=== PATIENT | female | born 1940 | race Caucasian/White ===

== ENCOUNTER → 2016-09-21 | Outpatient (CLI) | payer MEDICARE ==
[~2016-09-21] MED LIST: ASPIRIN ADULT L81 M2 PO; B-COMPLEX1 CAP PO; BACTRIM DS 8001 TA1 PO; CELEXA20 MG PO; CIMETIDINE400 M1 PO; CLONAZEPAM1 M1 PO; CLONAZEPAM1 MG PO; COREG12.5 M1 PO; COREG3.125 MG PO; ECOTRIN325 MG PO; FISH OIL1000 MG PO; FLAGYL500 MG PO; FLUTICAS P0.05 MG/AC NAS; FLUTICASON0.05 MG/AC NAS; HYDROCODONE BIT1 T11 PO; HYZAAR 12.5 MG-1 TAB PO; HYZAAR 25 MG-101 TA1; KLONOPIN1 MG PO; NIACIN FLUSH-F400 MG PO; NITROGLYCERIN0.4 MG SL; NITROQUICK0.4 MG SL; NON-DROWSY ALLE10 MG PO; NONI PO; OMEGA 31000 MG PO; OMEGA-3 FISH1000 MG PO; OSTEO-BI-FLEX 21 TAB PO; PAPAYA ENZYME PO; PLAVIX75 M1 PO; PLAVIX75 MG PO; PRESERVISION L1 EACH PO; PREVACID30 M1 PO; PRILOSEC; PRINIVIL20 MG PO; PROAIR HFA8.5 GM INH; PROTONIX TR40 MG PO; PROTONIX40 MG PO; RED YEAST RICE600 MG PO; SINGULAIR10 M1 PO; SINGULAIR10 MG PO; SUPER B-50 COM1 EAC1 PO; SYNTHROID,LEV100 MCG PO; SYNTHROID,LEVO88 MCG PO; Synthroid,Lev100 MCG PO; VITAMIN B COMPL1 CAP PO; VITAMIN B121000 MCG PO; VITAMIN C500 M4 PO; VITAMIN D1000 IU PO; VITAMIN D2000 IU PO; VITAMIN D3400 IU PO; VITAMIN E500 IU PO; ZANTAC 300300 MG PO; ZESTRIL10 MG PO; ZOFRAN4 MG PO
--- NOTE | ~2016-09-21 | ST ---
[place], [place] EXERCISE STRESS TEST REPORT NAME: RALPH RUBIN UNIT #: [id number] ROOM: DOCTOR: NANCY GONZALEZ [facility],[place] BIRTHDATE: [birth year] DOS: LEXISCAN WITH CARDIOLITE The patient received Lexiscan 0.4 mg over 10 seconds. Heart rate is 91. No ischemic changes on EKG. No complications noted. Isotope was injected and the patient was hemodynamically stable. No electrocardiographic changes for myocardial ischemia noted. Myocardial perfusion scan to follow. KARSON CRUZ MD CM:STRESS:EXERCISE STRESS TEST REPORT [id number] DESHAUN CRUZ MD [facility]
== END | disposition home or self-care (01) ==
LOC: CARD 01:13
DX: Z01.810 Encounter for preprocedural cardiovascular examination (principal); I25.118 Atherosclerotic heart disease of native coronary artery with other forms of angina pectoris; R06.02 Shortness of breath

== ENCOUNTER 2017-11-05 14:58 | Inpatient (IN) | payer MEDICARE, OTHER ==
[~2017-11-05] VITALS: Ht 165.1 cm; Wt 68.0 kg
--- NOTE | ~2017-11-05 | CON ---
[place], [place] REPORT OF CONSULTATION NAME: RALPH RUBIN UNIT #: [id number] ROOM: 411 DO[facility] [birth year] DOS: 11/06/2017 CARDIOLOGY CONSULTATION HISTORY OF PRESENT ILLNESS: The patient is a 76-year-old female came in with precordial chest discomfort. After the nitro paste, it has subsided, doing quite well. This morning, no further chest discomfort, no dyspnea, no syncope or presyncope, and the patient had a knee surgery done in July. Prior to that, in either May or June, she had a stress test with myocardial perfusion scan done as an outpatient, not in this institution, outside of this institution. We will obtain the results and I will review it. If there is any concern, we may do the coronary artery possible revascularization. If there is no further concern, if the left ventricle systolic function is good, no significant ischemia, we will manage conservatively as an outpatient with the medical therapy. The patient's knee surgery was right knee replacement, Dr. Machado has done that. The patient already on baby aspirin, used to be on ____ change it to baby aspirin, also on beta lorrie agents and VIDA inhibitor and now we want to put on nitrates, long acting, such as Imdur, that is isosorbide mononitrate. Chest x-ray done on admission was unremarkable. The patient has a history of coronary artery disease, chronic kidney disease, anxiety, history of diverticulitis, gastroesophageal reflux disease, dyslipidemia, hypothyroidism, hypertension, history of TIA in the past. No syncope or presyncope at this time. Lupus. The patient is prediabetic. PAST SURGICAL HISTORY: Cardiac catheterization, repair of the hiatal hernia, right total knee replacement recently, coronary stent and a tubal ligation. SOCIAL HISTORY: No history of smoking, alcohol, drug or tobacco use. The patient cannot take pravastatin. PHYSICAL EXAMINATION: VITAL SIGNS: Stable. Blood pressure is 134/84 and afebrile and heart rate is 70. GENERAL: Alert. NECK: Supple. LUNGS: No rales heard. HEART: S1, S2. No gallops. ABDOMEN: Soft. SKIN: Color is good, not diaphoretic. No cyanosis. NEUROLOGIC: No focal neurological deficit noted. LABORATORY DATA: Creatinine is 1.06 and BUN is 16. CBC unremarkable. ASSESSMENT: 1. Angina, appears to be stable. 2. Coronary artery disease, coronary stent. 3. Hypertension. 4. Dyslipidemia. [place], [place] REPORT OF CONSULTATION NAME: RALPH RUBIN UNIT #: [id number] ROOM: 411 DOCTOR[facility] [birth year] PLAN: Review the stress test from Dr. Rojas's office and if necessary cath; otherwise, conservative medical therapy. Thank you very much for asking me to see the patient. KARSON CRUZ MD CM:CONSTR:REPORT OF CONSULTATION [id number] 11/07/17 0649 interface AARON ZAMUDIO DO
[~2017-11-05 14:58] MED LIST changes: -FISH OIL1000 MG PO; +OMEGA-31000 M1 PO
[2017-11-05 15:06] VITALS: BP 141/78
[2017-11-05 15:16] LABS: BASO % 0.6 % (0.0-1.0); EOS # 0.2 10*3/uL (0.0-0.4); EOS % 2.9 % (1.0-4.0); HEMATOCRIT 39.4 % (37.0-47.0); HEMOGLOBIN 13.4 g/dl (12.0-16.0); LYMPH # 2.7 10*3/uL (1.3-4.4); LYMPH % 41.1 % (27.0-41.0); MEAN CELL VOLUME 85.8 fl (81.0-99.0); MEAN CORPUSCULAR HGB 29.2 pg (27.0-31.0); MEAN PLATELET VOLUME 8.9 fl (9.6-12.3); MONO # 0.7 10*3/uL (0.1-1.0); NEUT % 44.9 % (47.0-73.0); PLATELET COUNT AUTOMATED 248 10*3/uL (130-400); RED BLOOD COUNT 4.59 10*6/uL (4.10-5.10); RED CELL DISTRI WIDTH 12.8 % (0-14.5); WHITE BLOOD COUNT 6.6 10*3/uL (4.8-10.8)
[2017-11-05 15:27] LABS: ACT PARTIAL THROMBO TIME 25.7 SECONDS (20.8-31.5)
[2017-11-05 15:34] VITALS: BP 134/84
[2017-11-05 15:40] LABS: ALKALINE PHOSPHATASE 110 U/L (45-117); BUN 16 mg/dl (7-24); CHLORIDE 103 mmol/L (98-107); CREATININE 1.06 mg/dL (0.55-1.02); POTASSIUM 4.6 mmol/L (3.5-5.1); SGOT/AST 21 IU/L (3-35); SGPT/ALT 28 U/L (12-78); SODIUM 138 mmol/L (136-145); TOTAL PROTEIN 7.6 gm/dL (6.4-8.2)
[2017-11-05 15:49] LABS: TROPONIN I < 0.015 ng/ml (<0.045)
[2017-11-05 16:00] VITALS: BP 155/85
[2017-11-05 16:02] VITALS: BP 148/74
[2017-11-05 16:45] VITALS: BP 155/85
[2017-11-05] MEDS ORDERED: LAX STOOL SOFT1 EACH PO (19:12)
[2017-11-05] MEDS ORDERED: TAB-A-VITE1 EACH PO (19:13)
[2017-11-05] MEDS ORDERED: ZYRTEC10 M3 PO (19:14)
[2017-11-05 20:00] VITALS: BP 124/81
[2017-11-05] MEDS ORDERED: COREG12.5 M1 PO (20:58)
[2017-11-06] VITALS: BP 108/60
[2017-11-06 06:45] LABS: BASO % 0.6 % (0.0-1.0); EOS # 0.2 10*3/uL (0.0-0.4); EOS % 4.3 % (1.0-4.0); HEMOGLOBIN 12.2 g/dl (12.0-16.0); LYMPH % 40.5 % (27.0-41.0); MEAN CELL VOLUME 85.9 fl (81.0-99.0); MEAN CORPUSCULAR HGB 29.1 pg (27.0-31.0); MEAN CORPUSCULAR HGB CONC 33.9 g/dl (33.0-37.0); MEAN PLATELET VOLUME 8.6 fl (9.6-12.3); MONO # 0.5 10*3/uL (0.1-1.0); MONO % 10.3 % (3.0-9.0); NEUT # 2.1 10*3/uL (2.3-7.9); NEUT % 44.1 % (47.0-73.0); PLATELET COUNT AUTOMATED 207 10*3/uL (130-400); RED BLOOD COUNT 4.19 10*6/uL (4.10-5.10); RED CELL DISTRI WIDTH 12.7 % (0-14.5); WHITE BLOOD COUNT 4.9 10*3/uL (4.8-10.8)
[2017-11-06 07:03] LABS: BUN 14 mg/dl (7-24); CHLORIDE 105 mmol/L (98-107); CHOLESTEROL 211 mg/dL (<200); CREATININE 0.91 mg/dL (0.55-1.02); HDL CHOLESTEROL 37 mg/dl (40-60); LDL CHOLESTEROL 108 mg/dL (9-159); PHOSPHOROUS 3.1 mg/dL (2.5-4.9); POTASSIUM 4.1 mmol/L (3.5-5.1); SODIUM 140 mmol/L (136-145); TRIGLYCERIDES 330 mg/dl (<150); VLDL CHOLESTEROL 66 mg/dL (6-40)
[2017-11-06 07:09] LABS: THYROID STIM HORMONE (HS) 0.589 uIU/ml (0.358-4.75)
[2017-11-06 08:00] VITALS: BP 120/88
[2017-11-06 08:14] LABS: VITAMIN D, 25-HYDROXY 24.4 ng/mL (30-100)
== END 2017-11-06 12:32 | disposition home or self-care (01) | DRG 880 ==
LOC: ED 14:58 → 4E 15:57 → EDHOLD 15:57 → 4E 16:27
PROVIDERS: Internal Medicine; Nurse Practitioner Family
DX: F41.9 Anxiety disorder, unspecified (principal); E83.41 Hypermagnesemia; N18.3 Chronic kidney disease, stage 3 (moderate); M32.9 Systemic lupus erythematosus, unspecified; I25.118 Atherosclerotic heart disease of native coronary artery with other forms of angina pectoris; K21.9 Gastro-esophageal reflux disease without esophagitis; F32.9 Major depressive disorder, single episode, unspecified; J45.909 Unspecified asthma, uncomplicated; M79.7 Fibromyalgia; E78.5 Hyperlipidemia, unspecified; I12.9 Hypertensive chronic kidney disease with stage 1 through stage 4 chronic kidney disease, or unspecified chronic kidney disease; R73.9 Hyperglycemia, unspecified; Z96.651 Presence of right artificial knee joint; R73.03 Prediabetes; E03.9 Hypothyroidism, unspecified; Z95.5 Presence of coronary angioplasty implant and graft; Z88.1 Allergy status to other antibiotic agents; Z88.8 Allergy status to other drugs, medicaments and biological substances; I25.2 Old myocardial infarction; Z86.73 Personal history of transient ischemic attack (TIA), and cerebral infarction without residual deficits; Z98.51 Tubal ligation status; Z82.49 Family history of ischemic heart disease and other diseases of the circulatory system; Z83.3 Family history of diabetes mellitus; Z79.82 Long term (current) use of aspirin; Z79.899 Other long term (current) drug therapy; R09.1 Pleurisy

== ENCOUNTER 2018-02-10 14:37 | Emergency (ER) | payer OTHER ==
[~2018-02-10] VITALS: Ht 165.1 cm; Wt 68.9 kg
[~2018-02-10 14:37] MED LIST changes: +LAX STOOL SOFT1 EACH PO; +TAB-A-VITE1 EACH PO; +ZYRTEC10 M3 PO
[2018-02-10] MEDS ORDERED: PREDNISONE20 M1 PO (14:54)
== END 2018-02-10 15:03 | disposition home or self-care (01) ==
LOC: ED 14:37
DX: L23.7 Allergic contact dermatitis due to plants, except food (principal); Z88.1 Allergy status to other antibiotic agents; Z88.8 Allergy status to other drugs, medicaments and biological substances; Z79.899 Other long term (current) drug therapy

== ENCOUNTER → 2019-10-10 | Outpatient (CLI) | payer MEDICARE ==
[~2019-10-10] MED LIST changes: +PREDNISONE20 M1 PO
== END | disposition home or self-care (01) ==
LOC: US 13:55
DX: E03.9 Hypothyroidism, unspecified (principal); R13.10 Dysphagia, unspecified; R49.0 Dysphonia

== ENCOUNTER → 2019-11-16 | Outpatient (CLI) | payer MEDICARE | END | disposition home or self-care (01) | LOC: LAB 10:32 | DX: E23.6 Other disorders of pituitary gland (principal) ==

== ENCOUNTER → 2019-11-17 | Outpatient (CLI) | payer MEDICARE | END | disposition home or self-care (01) | LOC: LAB 10:34 | DX: E23.6 Other disorders of pituitary gland (principal) ==

== ENCOUNTER → 2019-11-18 | Outpatient (CLI) | payer MEDICARE | END | disposition home or self-care (01) | LOC: LAB 10:12 | PROVIDERS: Internal Medicine Endocrinology, Diabetes & Metabolism | DX: E78.01 Familial hypercholesterolemia (principal); E23.6 Other disorders of pituitary gland ==

== ENCOUNTER → 2020-06-03 | Outpatient (CLI) | payer MEDICARE ==
[2020-06-03 08:58] LABS: CREATININE 1.31 mg/dL (0.55-1.02); FREE T4 1.41 ng/dl (0.76-1.46); POTASSIUM 4.4 mmol/L (3.5-5.1); THYROXINE (T4) TOTAL 13.2 ug/dl (4.8-13.9)
[2020-06-03 09:04] LABS: THYROID STIM HORMONE (HS) 1.19 uIU/ml (0.358-4.75)
[2020-06-04 08:08] LABS: LDL CHOLESTEROL (DIRECT) 175 mg/dL (0-99)
[2020-06-04 09:10] LABS: FOLLICLE STIMULATING HORMONE 52.1 mIU/mL (.); PROLACTIN 15.5 ng/mL (4.8-23.3)
[2020-06-05 02:09] LABS: HUMAN GROWTH HORMONE 0.2 ng/mL (0.0-10.0); INSULIN-LIKE GROWTH FACTOR-1 136 ng/mL (42-185)
== END | disposition home or self-care (01) ==
LOC: LAB 00:17 → MRI 09:00 → LAB 09:00
PROVIDERS: ATTEND Internal Medicine Endocrinology, Diabetes & Metabolism
DX: D35.2 Benign neoplasm of pituitary gland (principal); E03.9 Hypothyroidism, unspecified; E78.1 Pure hyperglyceridemia; E55.9 Vitamin D deficiency, unspecified

== ENCOUNTER → 2022-07-24 | Outpatient (CLI) | payer MEDICARE ==
[~2022-07-24] MED LIST changes: +Synthroid,Levo88 MCG PO; -VITAMIN D1000 IU PO; +VITAMIN D350 MC2 PO; +VITAMIN E400 UNIT PO
[2022-07-24 11:59] LABS: BASO # 0.1 10*3/uL (0.0-0.1); BASO % 0.7 % (0.0-1.0); EOS # 0.2 10*3/uL (0.0-0.4); EOS % 3.3 % (1.0-4.0); HEMATOCRIT 41.5 % (37.0-47.0); LYMPH # 1.7 10*3/uL (1.3-4.4); LYMPH % 23.7 % (27.0-41.0); MEAN CELL VOLUME 89.4 fl (81.0-99.0); MEAN CORPUSCULAR HGB CONC 33.5 g/dl (33.0-37.0); MEAN PLATELET VOLUME 9.2 fl (9.6-12.3); MONO # 0.7 10*3/uL (0.1-1.0); MONO % 9.1 % (3.0-9.0); NEUT # 4.6 10*3/uL (2.3-7.9); NEUT % 62.9 % (47.0-73.0); PLATELET COUNT AUTOMATED 243 10*3/uL (130-400); RED BLOOD COUNT 4.64 10*6/uL (4.10-5.10); RED CELL DISTRI WIDTH 12.4 % (0-14.5); RETICULOCYTE % 1.31 % (0.50-2.50); WHITE BLOOD COUNT 7.2 10*3/uL (4.8-10.8)
[2022-07-24 12:00] LABS: BILIRUBIN Negative (Negative); BLOOD Negative (Negative); CLARITY Clear (Clear); COLOR Yellow (Yellow); GLUCOSE Negative (Negative); KETONE Negative (Negative); LEUKO ESTERASE Negative (Negative); NITRITE Negative (Negative); UROBILINOGEN 0.2 E.U./dl (0.0-1.0)
[2022-07-24 12:19] LABS: CREATININE 1.28 mg/dL (0.55-1.02); POTASSIUM 4.4 mmol/L (3.5-5.1); RBC 0-2 rbc/hpf (0-2); WBC 0-2 wbc/hpf (0-5)
[2022-07-24 12:28] LABS: THYROID STIM HORMONE (HS) 0.334 uIU/ml (0.358-4.75); TOTAL PROTEIN 7.4 gm/dL (6.4-8.2)
[2022-07-24 12:56] LABS: FERRITIN 67.8 ng/mL (10.0-291.0); VITAMIN D, 25-HYDROXY 44.9 ng/mL (30-100)
== END | disposition home or self-care (01) ==
LOC: LAB 11:27
PROVIDERS: ATTEND Family Medicine
DX: E78.5 Hyperlipidemia, unspecified (principal); E55.9 Vitamin D deficiency, unspecified; R79.89 Other specified abnormal findings of blood chemistry; R53.83 Other fatigue; R74.8 Abnormal levels of other serum enzymes

== ENCOUNTER → 2022-12-22 | Outpatient (CLI) | payer MEDICARE ==
[2022-12-22 14:01] LABS: BASO # 0.1 10*3/uL (0.0-0.1); BASO % 0.8 % (0.0-1.0); EOS # 0.3 10*3/uL (0.0-0.4); EOS % 3.5 % (1.0-4.0); HEMATOCRIT 43.4 % (37.0-47.0); LYMPH # 1.8 10*3/uL (1.3-4.4); LYMPH % 24.7 % (27.0-41.0); MEAN CELL VOLUME 87.7 fl (81.0-99.0); MEAN CORPUSCULAR HGB 29.9 pg (27.0-31.0); MEAN CORPUSCULAR HGB CONC 34.1 g/dl (33.0-37.0); MEAN PLATELET VOLUME 9.3 fl (9.6-12.3); MONO # 0.7 10*3/uL (0.1-1.0); MONO % 9.5 % (3.0-9.0); NEUT # 4.5 10*3/uL (2.3-7.9); NEUT % 61.1 % (47.0-73.0); PLATELET COUNT AUTOMATED 282 10*3/uL (130-400); RED BLOOD COUNT 4.95 10*6/uL (4.10-5.10); RED CELL DISTRI WIDTH 12.3 % (0-14.5); RETICULOCYTE % 1.35 % (0.50-2.50); WHITE BLOOD COUNT 7.4 10*3/uL (4.8-10.8)
[2022-12-22 14:35] LABS: POTASSIUM 5.1 mmol/L (3.4-5.1); T3 UPTAKE 21.3 % (22.4-36.7); THYROID STIM HORMONE (HS) 0.43 uIU/ml (0.550-4.780); THYROXINE (T4) TOTAL 13.5 ug/dl (4.5-10.9); TOTAL PROTEIN 7.4 gm/dL (6.0-8.0); VITAMIN D, 25-HYDROXY 38.5 ng/mL (30-100)
== END | disposition home or self-care (01) ==
LOC: LAB 12:58
PROVIDERS: ATTEND Family Medicine
DX: E78.5 Hyperlipidemia, unspecified (principal); R79.89 Other specified abnormal findings of blood chemistry; R53.83 Other fatigue; R74.8 Abnormal levels of other serum enzymes; E55.9 Vitamin D deficiency, unspecified

== ENCOUNTER → 2023-08-06 | Outpatient (CLI) | payer MEDICARE ==
[2023-08-06 14:36] LABS: BASO # 0.1 10*3/uL (0.0-0.1); BASO % 0.7 % (0.0-1.0); EOS # 0.2 10*3/uL (0.0-0.4); EOS % 2.8 % (1.0-4.0); HEMATOCRIT 41.4 % (37.0-47.0); LYMPH # 1.4 10*3/uL (1.3-4.4); MEAN CELL VOLUME 86.3 fl (81.0-99.0); MEAN CORPUSCULAR HGB 29.8 pg (27.0-31.0); MEAN CORPUSCULAR HGB CONC 34.5 g/dl (33.0-37.0); MEAN PLATELET VOLUME 8.9 fl (9.6-12.3); MONO # 0.7 10*3/uL (0.1-1.0); MONO % 9.3 % (3.0-9.0); NEUT # 5.2 10*3/uL (2.3-7.9); NEUT % 68.8 % (47.0-73.0); PLATELET COUNT AUTOMATED 278 10*3/uL (130-400); RED CELL DISTRI WIDTH 12.3 % (0-14.5); RETICULOCYTE % 0.98 % (0.50-2.50); WHITE BLOOD COUNT 7.5 10*3/uL (4.8-10.8)
[2023-08-06 14:51] LABS: BILIRUBIN 1+ (Negative); BLOOD Negative (Negative); CLARITY Cloudy (Clear); COLOR Dark Yellow (Yellow); GLUCOSE Negative (Negative); KETONE Negative (Negative); LEUKO ESTERASE 3+ (Negative); NITRITE Negative (Negative); PH 5.5 (4.5-8.0); SPECIFIC GRAVITY 1.015 (1.001-1.030)
[2023-08-06 14:59] LABS: POTASSIUM 4.3 mmol/L (3.4-5.1); T3 UPTAKE 27.9 % (22.4-36.7); THYROXINE (T4) TOTAL 11.2 ug/dl (4.5-10.9); TOTAL PROTEIN 7.4 gm/dL (6.0-8.0); VITAMIN D, 25-HYDROXY 53.7 ng/mL (30-100)
[2023-08-06 15:08] LABS: BACTERIA 2+; EPITHELIAL CELLS 0-2; WBC 21-30 wbc/hpf (0-5)
== END | disposition home or self-care (01) ==
LOC: LAB 13:58
PROVIDERS: ATTEND Family Medicine
DX: R06.02 Shortness of breath (principal); R79.89 Other specified abnormal findings of blood chemistry; R53.83 Other fatigue; E78.5 Hyperlipidemia, unspecified; E55.9 Vitamin D deficiency, unspecified

== ENCOUNTER 2025-02-12 14:49 | Emergency (ER) | payer MEDICARE ==
[~2025-02-12] VITALS: Ht 165.1 cm; Wt 70.3 kg
[2025-02-12] MEDS ORDERED: Meclizine Hydrochloride 25 MG TAB PO ONE (14:55)
[2025-02-12] MEDS ORDERED: SODIUM CHLORIDE 0.9% 1,000 ML IV ONE (14:55)
[2025-02-12] MEDS ORDERED: Ondansetron Hydrochloride 4 MG/2 ML VIAL IV ONE ×2 (14:55→16:45)
[2025-02-12 15:14] LABS: BASO % 0.7 % (0.0-1.0); EOS # 0.2 10*3/uL (0.0-0.4); EOS % 3.7 % (1.0-4.0); HEMATOCRIT 40.6 % (37.0-47.0); MEAN CELL VOLUME 88.1 fl (81.0-99.0); MEAN CORPUSCULAR HGB 29.1 pg (27.0-31.0); MEAN PLATELET VOLUME 8.7 fl (9.6-12.3); MONO # 0.6 10*3/uL (0.1-1.0); MONO % 9.9 % (3.0-9.0); NEUT # 3.1 10*3/uL (2.3-7.9); PLATELET COUNT AUTOMATED 222 10*3/uL (130-400); RED BLOOD COUNT 4.61 10*6/uL (4.10-5.10); RED CELL DISTRI WIDTH 12.2 % (0-14.5); WHITE BLOOD COUNT 5.7 10*3/uL (4.8-10.8)
[2025-02-12 15:38] LABS: POTASSIUM 4.1 mmol/L (3.4-5.1)
[2025-02-12] MEDS ORDERED: HEPARIN SODIUM 250 ML IV SCH (16:25)
[2025-02-12] MEDS ORDERED: MORPHINE Sulfate 2 MG/ML SYR IV ONE (16:40)
== END 2025-02-12 20:30 | disposition short-term general hospital (02) ==
LOC: ED 14:49
PROVIDERS: Emergency Medicine
DX: I21.4 Non-ST elevation (NSTEMI) myocardial infarction (principal); R42 Dizziness and giddiness; I25.10 Atherosclerotic heart disease of native coronary artery without angina pectoris; E78.5 Hyperlipidemia, unspecified; J45.909 Unspecified asthma, uncomplicated; I12.9 Hypertensive chronic kidney disease with stage 1 through stage 4 chronic kidney disease, or unspecified chronic kidney disease; N18.9 Chronic kidney disease, unspecified; Z88.1 Allergy status to other antibiotic agents; Z88.8 Allergy status to other drugs, medicaments and biological substances; Z79.82 Long term (current) use of aspirin; Z79.899 Other long term (current) drug therapy; Z96.651 Presence of right artificial knee joint; Z95.5 Presence of coronary angioplasty implant and graft